=== PATIENT | male | born 1965 | race Caucasian/White ===

== ENCOUNTER 2017-02-18 08:46 | Observation (INO) | payer BC, OTHER ==
[2017-02-18] MEDS ORDERED: Zofran 4 MG/2 ML VIAL IV ONE (09:18)
[2017-02-18] MEDS ORDERED: Hydromorphone 1 mg/ml Ampule IV ONE (09:18)
[2017-02-18] MEDS: Sodium Chloride 0.9% 1000 ML 1,000 ML IV SCH ×3 (09:37→17:09)
[2017-02-18] MEDS ORDERED: Zofran 4 MG/2 ML VIAL ONE (09:37)
[2017-02-18] MEDS ORDERED: Hydromorphone 1 mg/ml Ampule ONE (09:37)
[2017-02-18 09:38] LABS: BASOPHIL % 0.3 % (0.0-0.4); Eosinophil % 0.7 % (0.00-5.0); Granulocytes % 68.8 % (36.0-66.0); Lymphocytes % 19.2 % (24.0-44.0); Mean Cell Volume 93.9 fl (78-100); Mean Corpuscular Hemoglobin 31.2 pg (26-32); Mean Platelet Volume 11.2 fl (6-9.5); Platelet Count 227 K/mm3 (150-450); Red Blood Count 4.78 M/mm3 (4.1-5.6); Red Cell Distribution Width 12.7 % (11.5-14.0); White Blood Count 11.9 K/mm3 (4.0-10.5)
[2017-02-18 09:58] LABS: ALBUMIN 3.9 g/dL (3.4-5.0); ALKALINE PHOSPHATASE 50 U/L (46-116); ANION GAP 13.9 MEQ/L (5-15); BLOOD UREA NITROGEN 19 mg/dL (9-20); CHLORIDE 100 mEq/L (98-107); Carbon Dioxide 30.5 mEq/L (21-32); Glucose 114 MG/DL (70-110); LIPASE 238 U/L (73-393); SGOT/AST 28 U/L (15-37); SGPT/ALT 60 U/L (12-78); SODIUM 140 mEq/L (136-145); Total Protein 7.6 gm/dL (6.4-8.2)
--- NOTE | 2017-02-18 10:05 | ERPHSYRPT ---
- History of Present Illness Time Seen by Provider: 02/18/17 09:15 Historian: patient Exam Limitations: other Patient Subjective Stated Complaint: PT REPORTS LOW ABD PAIN BEGINNING 2 DAYS AGO-STATES THAT PAIN IS LOW NONRADIAITNG-PT STATES HE WENT ON WEB ET HAS EVERY S/S OF AN APPENDITIS-DENIES N/V-UNSURE OF FEVER Triage Nursing Assessment: PT PINK WARM ET [id number] ALL QUESTIONS CORRECTLY-MOVING ALL EXTREMITIES WITH EASE-ABD SOFT ET TENDER IN GROIN/RIGHT QUAD-NO REBOUND TENDERNESS NOTED-BOWEL SOUNDS PRESENT Physician History: Patient with a history of hypertension, type 2 diabetes complains of left lower abdominal pain for 2 days crampy sharp pains, progressively worse. Denies associated fever, chills, nausea, emesis, diarrhea, or urinary symptoms. Timing/Duration: yesterday Activities at Onset: none Quality: cramping, stabbing Abdominal Pain Onset Location: LLQ, suprapubic Pain Radiation: no radiation Severity of Pain-Max: moderate Severity of Pain-Current: moderate Modifying Factors: Improves With: nothing Associated Symptoms: denies symptoms Previous symptoms: no prior history Allergies/Adverse Reactions: No Known Drug Allergies Allergy (Unverified 02/18/17 09:12) Home Medications: Amlodipine Besylate 5 mg [Norvasc 5 mg] 5 mg PO DAILY 02/18/17 [History] Aspirin 81 gm Chew [Baby Aspirin 81 mg Chew] 81 mg PO DAILY 02/18/17 [ History] Atorvastatin Calcium [Lipitor 20MG Tablet] 20 mg PO DAILY 02/18/17 [History] Benazepril HCl 10 mg [Lotensin 10 MG] 10 mg PO BID 02/18/17 [History] Fexofenadine HCl [Shilpi Allergy] 180 mg PO DAILY 02/18/17 [History] Hydrochlorothiazide 25 mg [hydroDIURIL 25 MG] 25 mg PO DAILY 02/18/17 [ History] Metformin HCl 500 mg [Glucophage 500 MG] 500 mg PO BID 02/18/17 [History] Metoprolol Tartrate [Lopressor] 100 mg PO BID 02/18/17 [History] Omeprazole 20 MG [Prilosec 20 mg] 20 mg PO DAILY 02/18/17 [History] Hx Tetanus, Diphtheria Vaccination/Date Given: No Hx Influenza Vaccination/Date Given: No Hx Pneumococcal Vaccination/Date Given: No Immunizations Up to Date: Yes - Review of Systems Constitutional: No Fever, No Chills Eyes: No Symptoms Ears, Nose, & Throat: No Symptoms Respiratory: No Symptoms, No Cough, No Dyspnea Cardiac: No Symptoms, No Chest Pain, No Edema, No Syncope Abdominal/Gastrointestinal: Abdominal Pain, No Nausea, No Vomiting, No Diarrhea Genitourinary Symptoms: No Symptoms, No Dysuria Musculoskeletal: No Symptoms, No Back Pain, No Neck Pain Skin: No Rash Neurological: No Dizziness, No Focal Weakness, No Sensory Changes Psychological: No Symptoms Endocrine: No Symptoms All Other Systems: Reviewed and Negative - Past Medical History Pertinent Past Medical History: Yes Cardiac History: Arrhythmia, Hypertension Endocrine Medical History: Diabetes Type II - Past Surgical History Past Surgical History: Yes Gastrointestinal: Hernia Repair - Social History Smoking Status: Current every day smoker How long have you smoked: YRS Exposure to second hand smoke: Yes Drug Use: none Patient Lives Alone: No - Nursing Vital Signs Nursing Vital Signs: Initial Vital Signs Temperature 97.6 F 02/18/17 09:11 Pulse Rate 75 02/18/17 09:11 Respiratory Rate 18 02/18/17 09:11 Blood Pressure 127/72 02/18/17 09:11 O2 Sat by Pulse Oximetry 96 02/18/17 09:11 Pain Scale Pain Intensity 2 - Physical Exam General Appearance: no apparent distress, alert Eye Exam: PERRL/EOMI, eyes nml inspection Ears, Nose, Throat Exam: normal ENT inspection, pharynx normal, moist mucous membranes Neck Exam: normal inspection, non-tender, supple, full range of motion Respiratory Exam: normal breath sounds, lungs clear, No respiratory distress Cardiovascular Exam: regular rate/rhythm, normal heart sounds Gastrointestinal/Abdomen Exam: soft, normal bowel sounds, tenderness (THERE IS MODERATE LLQ AND SUPRAPUBIC TENDERNESS WITHOUT GUARDING), No mass Back Exam: normal inspection, normal range of motion, No CVA tenderness, No vertebral tenderness Extremity Exam: normal inspection, normal range of motion, pelvis stable Neurologic Exam: alert, oriented x 3, cooperative, normal mood/affect, nml cerebellar function, sensation nml, No motor deficits Skin Exam: normal color, warm, dry SpO2 Interpretation: normal SpO2: 96 Oxygen Delivery: Room Air - CT Exams Abdomen/Pelvis CT Interpretation: Discussed w/radiologist (THERE IS A SHORT SEGMENT OF MODERATE MID/PROXIMAL SIGMOID DIVERTICULITIS, NORMAL APPENDIX ) Ordered Tests: Active Orders 24 hr Category Date Time Status Up Ad Obdulia ROUTINE Activity 02/18/17 11:37 Ordered Accucheck ACHS Care 02/18/17 11:35 Ordered Admission/Status Order ROUTINE Care 02/18/17 11:35 Ordered Call Admit Doctor for Orders ON ADMISSION Care 02/18/17 11:36 Ordered Clean Catch Urine Specimen STAT Care 02/18/17 09:18 Active Code Status Order ROUTINE Care 02/18/17 11:35 Ordered IV Care Q6H Care 02/18/17 11:35 Ordered IV Insertion STAT Care 02/18/17 09:18 Active Vital Signs Q4H Care 02/18/17 11:35 Ordered Clear Liquid Diet 02/18/17 Lunch Ordered ABDOMEN AND PELVIS W CONTRAST [CT] Stat Exams 02/18/17 09:18 Completed AMYLASE Stat Lab 02/18/17 09:34 Completed BLOOD CULTURE Stat Lab 02/18/17 09:34 Received CBC W DIFF Stat Lab 02/18/17 09:34 Completed CMP Stat Lab 02/18/17 09:34 Completed LIPASE Stat Lab 02/18/17 09:34 Completed UA W/RFX UR CULTURE Stat Lab 02/18/17 09:18 Ordered Transfer Order Routine Transfer 02/18/17 Ordered Medication Summary Generic Name Dose Route Start Last Admin Trade Name Freq PRN Reason Stop Dose Admin Acetaminophen 650 mg 02/18/17 11:35 Tylenol 325 Mg PO 03/20/17 11:34 Q4H PRN PRN PAIN AND/OR FEVER Amlodipine Besylate 5 mg 02/19/17 10:00 Norvasc 5 Mg PO 03/21/17 09:59 QAM KAYCE Benazepril HCl 10 mg 02/18/17 22:00 Lotensin 10 Mg PO 03/20/17 21:59 BID KAYCE Hydrochlorothiazide 25 mg 02/19/17 10:00 Hydrodiuril 25 Mg PO 03/21/17 09:59 DAILY KAYCE Hydromorphone HCl 1 mg 02/18/17 11:35 Dilaudid 2 Mg Injection IV 02/23/17 11:34 Q4H PRN PRN PAIN Sodium Chloride 1,000 mls @ 500 mls/hr 02/18/17 09:30 02/18/17 09:37 Sodium Chloride 0.9% 1000 Ml IV 03/20/17 09:29 500 mls/hr .Q2H KAYCE Administration Levofloxacin/Dextrose 500 mg in 100 mls @ 100 mls/hr 02/18/17 11:09 Levofloxacin 500mg/100ml D5w IV 02/18/17 12:08 STAT STA Levofloxacin/Dextrose 500 mg in 100 mls @ 100 mls/hr 02/19/17 10:00 Levofloxacin 500mg/100ml D5w IV 03/21/17 09:59 Q24H10 KAYCE Sodium Chloride 1,000 mls @ 100 mls/hr 02/18/17 11:45 Sodium Chloride 0.9% 1000 Ml IV 03/20/17 11:44 .Q10H KAYCE Insulin Aspart 0 unit 02/18/17 11:35 Novolog Insulin SQ 03/20/17 11:34 UD PRN HYPERGLYCEMIA Metoprolol Tartrate 100 mg 02/18/17 22:00 Lopressor 50 Mg PO 03/20/17 21:59 BID KAYCE Ondansetron HCl 4 mg 02/18/17 11:35 Zofran 4 Mg/2 Ml Vial IV 03/20/17 11:34 Q6H PRN PRN NAUSEA/VOMITING Discontinued Medications Generic Name Dose Route Start Last Admin Trade Name Freq PRN Reason Stop Dose Admin Hydromorphone HCl 1 mg 02/18/17 09:18 02/18/17 09:36 Hydromorphone 1 Mg/Ml Ampule IV 02/18/17 09:19 1 mg STAT ONE Administration Hydromorphone HCl Confirm 02/18/17 09:37 Hydromorphone 1 Mg/Ml Ampule Administered 02/18/17 09:38 Dose 1 mg .ROUTE .STK-MED ONE Metronidazole 500 mg in 100 mls @ 200 mls/hr 02/18/17 11:09 02/18/17 11:21 Flagyl 500 Mg Ivpb IV 02/18/17 11:38 200 mls/hr STAT STA Administration Metronidazole Confirm 02/18/17 11:20 Flagyl 500 Mg Ivpb Administered 02/18/17 11:21 Dose 500 mg in 100 mls @ ud IV .STK-MED ONE Ondansetron HCl 4 mg 02/18/17 09:18 02/18/17 09:36 Zofran 4 Mg/2 Ml Vial IV 02/18/17 09:19 4 mg STAT ONE Administration Ondansetron HCl Confirm 02/18/17 09:37 Zofran 4 Mg/2 Ml Vial Administered 02/18/17 09:38 Dose 4 mg .ROUTE .STK-MED ONE Lab/Rad Data: Laboratory Result Diagrams 02/18/17 09:34 02/18/17 09:34 Laboratory Results 02/18/17 02/18/17 Range/Units 09:34 09:34 WBC 11.9 H (4.0-10.5) K/mm3 RBC 4.78 (4.1-5.6) M/mm3 Hgb 14.9 (12.5-18.0) gm/dl Hct 44.9 (42-50) % MCV 93.9 (78-100) fl MCH 31.2 (26-32) pg MCHC 33.2 (32-36) g/dl RDW 12.7 (11.5-14.0) % Plt Count 227 (150-450) K/mm3 MPV 11.2 H (6-9.5) fl Gran % 68.8 H (36.0-66.0) % Lymphocytes % 19.2 L (24.0-44.0) % Monocytes % 11.0 (0.0-12.0) % Eosinophils % 0.7 (0.00-5.0) % Basophils % 0.3 (0.0-0.4) % Basophils # 0.03 (0-0.4) Sodium 140 (136-145) mEq/L Potassium 4.0 (3.5-5.1) mEq/L Chloride 100 (98-107) mEq/L Carbon Dioxide 30.5 (21-32) mEq/L Anion Gap 13.9 (5-15) MEQ/L BUN 19 (9-20) mg/dL Creatinine 0.99 (0.55-1.30) mg/dl Estimated GFR > 60 ML/MIN Glucose 114 H (70-110) MG/DL Calcium 9.6 (8.5-10.1) mg/dL Total Bilirubin 0.80 (0.2-1.0) mg/dL AST 28 (15-37) U/L ALT 60 (12-78) U/L Alkaline Phosphatase 50 (46-116) U/L Serum Total Protein 7.6 (6.4-8.2) gm/dL Albumin 3.9 (3.4-5.0) g/dL Amylase 60 (25-115) U/L Lipase 238 (73-393) U/L - Progress Progress Note: 02/18/17 11:16 PATIENT ADMINISTERED IV NORMAL SALINE 500ML/HR, ZOFRAN 4MG, DILAUDID 1MG IV, AFTER 2 SETS OF BLOOD CULTURES OBTAINED IV LEVAQUIN 500MG AND FLAGYL 500MG IVPB Discussed with Dr.: Chatman (DISCUSSED WITH DR CHATMAN AT 1130 FOR OBSERVATION) - Departure Time of Disposition: 11:35 Departure Disposition: Observation Clinical Impression: ACUTE SIGMOID DIVERTICULITIS Condition: Stable Critical Care Time: No Referrals: DOCTOR,NO FAMILY [Primary Care Provider] -
--- NOTE | 2017-02-18 10:53 | XRAY ---
Indication: Lower abdominal/pelvic pain. Diarrhea. Multiple contiguous axial images obtained through the abdomen and pelvis using 80 cc Isovue 370 contrast only. Comparison: None Lung bases demonstrate mild bibasilar dependent atelectasis. Heart is not enlarged. Noncontrasted stomach and bowel loops appear nonobstructed. Normal appendix. Mild scattered colonic diverticulosis with short segment of moderate mid/proximal sigmoid diverticulitis. Tiny free fluid but no walled off fluid collection or free air. Remaining liver, gallbladder, pancreas, spleen, adrenal glands, kidneys, ureters, and bladder appear unremarkable. Minimal aortoiliac calcifications. No AAA or pathologic retroperitoneal lymphadenopathy. Osseous structures intact with minimal degenerative changes throughout the spine. Impression: Scattered colonic diverticulosis with sigmoid diverticulitis. No perforation/complications. CT DI 23.42
[2017-02-18] MEDS ORDERED: Levofloxacin 500MG/100ML D5W 500 MG/100 ML BAG IV STA (11:09)
[2017-02-18] MEDS ORDERED: FLAGYL 500 MG IVPB 500 MG/100 ML BAG IV ONE (11:20)
[2017-02-18] MEDS: FLAGYL 500 MG IVPB 500 MG/100 ML BAG IV STA ×2 (11:21→11:30)
[2017-02-18] MEDS ORDERED: TYLENOL 325 MG PO PRN (11:35)
[2017-02-18] MEDS ORDERED: NovoLOG Insulin SQ PRN (11:35)
[2017-02-18] MEDS ORDERED: Zofran 4 MG/2 ML VIAL IV PRN (11:35)
[2017-02-18 12:02] LABS: Bilirubin NEGATIVE (NEGATIVE); Collection Type VOID; Glucose NEGATIVE (NEGATIVE); Leukocyte Esterase NEGATIVE (NEGATIVE)
[2017-02-18 12:09] LABS: COMPLETE URINE MICROSCOPIC? YES
[2017-02-18 12:10] LABS: ADD URINE CULTURE? NO (NO); Bacteria RARE /HPF (NEGATIVE); Epithelial Cells RARE /HPF (FEW)
[2017-02-18] MEDS ORDERED: HOLD METFORMIN PRODUCTS FOR 48 HOURS MC SCH (13:00)
--- NOTE | 2017-02-18 17:03 | PCM.HP ---
History of Present Illness - Chief Complaint Chief Complaint: acute sigmoid diverticulitis History of Present Illness: is a 51 year old male who has had low abdominal pain for the last 2 days. He had a single bout of diarrhea, no blood in the stool. felt subjectively warm, no objective fever. had a colonoscopy last year. - Review of Systems Constitutional: Chills Respiratory: No Cough, No Short Of Breath Cardiac: No Chest Pain, No Edema, No Syncope Abdominal/Gastrointestinal: Abdominal Pain, No Nausea, No Vomiting, No Diarrhea Genitourinary Symptoms: No Dysuria Skin: No Rash All Other Systems: Reviewed and Negative Medications & Allergies Home Medications: Home Medication List Amlodipine Besylate 5 mg [Norvasc 5 mg] 5 mg PO DAILY 02/18/17 [History Confirmed 02/18/17] Aspirin 81 gm Chew [Baby Aspirin 81 mg Chew] 81 mg PO DAILY 02/18/17 [ History Confirmed 02/18/17] Atorvastatin Calcium [Lipitor 20MG Tablet] 20 mg PO DAILY 02/18/17 [History Confirmed 02/18/17] Benazepril HCl 10 mg [Lotensin 10 MG] 10 mg PO BID 02/18/17 [History Confirmed 02/18/17] Fexofenadine HCl [Shilpi Allergy] 180 mg PO DAILY 02/18/17 [History Confirmed 02/18/17] Hydrochlorothiazide 25 mg [hydroDIURIL 25 MG] 25 mg PO DAILY 02/18/17 [ History Confirmed 02/18/17] Metformin HCl 500 mg [Glucophage 500 MG] 500 mg PO BID 02/18/17 [History Confirmed 02/18/17] Metoprolol Tartrate [Lopressor] 100 mg PO BID 02/18/17 [History Confirmed ] Omeprazole 20 MG [Prilosec 20 mg] 20 mg PO DAILY 02/18/17 [History Confirmed ] Allergies/Adverse Reactions: Allergies Allergy/AdvReac Type Severity Reaction Status Date / Time No Known Drug Allergies Allergy Unverified 02/18/17 09:12 - Past Medical History Past Medical History: Yes Neurological History: No Pertinent History ENT History: No Pertinent History Cardiac History: Arrhythmia, Hypertension Respiratory History: No Pertinent History Endocrine Medical History: Diabetes Type II Musculoskelatal History: No Pertinent History GI Medical History: Diverticulitis, GERD History: No Pertinent History Pyscho-Social History: No Pertinent History Male Reproductive Disorders: No Pertinent History - Past Surgical History Past Surgical History: Yes Neuro Surgical History: No Pertinent History Cardiac History: Cardiac Catheterization Respiratory Surgery: No Pertinent History GI Surgical History: Hernia Repair Genitourinary Surgical Hx: No Pertinent History Musculskeletal Surgical Hx: No Pertinent History Male Surgical History: No Pertinent History Other Surgical History: left foot repair surgery. colonoscopy 2016 - Social History Smoking Status: Former smoker How long have you smoked: 20 years Exposure to second hand smoke: Yes Alcohol: Heavy Drug Use: none - Physical Exam Vital Signs: Vital Signs - 24 hr Temp Pulse Resp BP Pulse Ox 02/18/17 16:33 98 F 69 20 128/91 96 02/18/17 12:36 98.2 F 93 H 18 104/60 93 L 02/18/17 12:09 98.2 F 93 H 18 104/60 93 L 02/18/17 11:43 96 02/18/17 11:38 80 18 134/60 98 02/18/17 11:35 98.2 F 93 H 18 104/60 93 L 02/18/17 09:11 97.6 F 75 18 127/72 96 General Appearance: no apparent distress, alert Respiratory Exam: normal breath sounds, lungs clear, No respiratory distress Cardiovascular Exam: regular rate/rhythm, normal heart sounds, normal peripheral pulses Gastrointestinal/Abdomen Exam: tenderness Extremity Exam: normal inspection, normal range of motion, pelvis stable Assessment/Plan (1) Diverticulitis large intestine Current Visit: Yes Status: Acute Assessment & Plan: on levaquin and flagyl, repeat labs in am Code(s): K57.32 - DVTRCLI OF LG INT W/O PERFORATION OR ABSCESS W/O BLEEDING (2) Diabetes mellitus Current Visit: Yes Status: Acute Assessment & Plan: hold metformin, cover with SSI due to IV contrast for CT Code(s): E11.9 - TYPE 2 DIABETES MELLITUS WITHOUT COMPLICATIONS (3) Essential (primary) hypertension Current Visit: Yes Status: Acute Assessment & Plan: continue home meds Code(s): I10 - ESSENTIAL (PRIMARY) HYPERTENSION
[2017-02-18] MEDS: FLAGYL 500 MG IVPB 500 MG/100 ML BAG IV SCH (17:16)
[2017-02-18] MEDS: DILAUDID 2 MG INJECTION IV PRN (18:25)
[2017-02-18] MEDS ORDERED: Lopressor 50 MG ONE (19:58)
[2017-02-18] MEDS ORDERED: Lotensin 10 MG ONE (19:58)
[2017-02-18] MEDS: Lopressor 50 MG PO SCH (21:38)
[2017-02-18] MEDS: Lotensin 10 MG PO SCH (22:56)
[2017-02-19] MEDS: FLAGYL 500 MG IVPB 500 MG/100 ML BAG IV SCH ×5 (00:17→23:56)
[2017-02-19] MEDS: DILAUDID 2 MG INJECTION IV PRN ×4 (04:15→21:15)
[2017-02-19] MEDS: Sodium Chloride 0.9% 1000 ML 1,000 ML IV SCH ×2 (04:18→18:36)
[2017-02-19 05:29] LABS: Mean Cell Volume 95.5 fl (78-100); Mean Corpuscular Hemoglobin 31.1 pg (26-32); Mean Platelet Volume 11.2 fl (6-9.5); Platelet Count 205 K/mm3 (150-450); Red Blood Count 4.63 M/mm3 (4.1-5.6); Red Cell Distribution Width 12.8 % (11.5-14.0); White Blood Count 8.9 K/mm3 (4.0-10.5)
[2017-02-19 05:45] LABS: ALBUMIN 3.5 g/dL (3.4-5.0); ALKALINE PHOSPHATASE 43 U/L (46-116); ANION GAP 12.3 MEQ/L (5-15); BLOOD UREA NITROGEN 16 mg/dL (9-20); CHLORIDE 103 mEq/L (98-107); Carbon Dioxide 30.6 mEq/L (21-32); Glucose 100 MG/DL (70-110); SGOT/AST 22 U/L (15-37); SGPT/ALT 54 U/L (12-78); SODIUM 142 mEq/L (136-145); Total Protein 7.2 gm/dL (6.4-8.2)
[2017-02-19 07:22] LABS: BAND 3 % (0.0-2.0); Eosinophil 2 % (0.00-3.0); Platelet Estimate NORMAL (NORMAL); Total Cells Counted 100
--- NOTE | 2017-02-19 08:37 | PCM.NOTE ---
Date and Time: 02/19/17830 Subjective Assessment: patient feels like his pain is improving today. no new problems or concerns, tolerating po intake Objective Exam General Appearance: no apparent distress, alert Respiratory Exam: normal breath sounds, lungs clear, No respiratory distress Cardiovascular Exam: regular rate/rhythm, normal heart sounds Gastrointestinal/Abdomen Exam: soft, No tenderness, No mass Extremity Exam: normal inspection, normal range of motion OBJECTIVE DATA Vital Signs: Vital Signs - 24 hr Temp Pulse Resp BP Pulse Ox 02/19/17 07:12 97.8 F 66 18 126/70 93 L 02/19/17 04:00 97.5 F 70 18 124/82 94 L 02/19/17 00:25 97.9 F 66 20 113/68 91 L 02/18/17 20:00 98.3 F 71 19 124/75 91 L 02/18/17 16:33 98 F 69 20 128/91 96 02/18/17 12:36 98.2 F 93 H 18 104/60 93 L 02/18/17 12:09 98.2 F 93 H 18 104/60 93 L 02/18/17 11:43 96 02/18/17 11:38 80 18 134/60 98 02/18/17 11:35 98.2 F 93 H 18 104/60 93 L 02/18/17 09:11 97.6 F 75 18 127/72 96 Pain Assessment - Last Documented Pain Intensity 0 Pain Scale Used 0-10 Pain Scale Intake and Output: Intake & Output 02/16/17 02/17/17 02/18/17 02/19/17 11:59 11:59 11:59 11:59 Intake Total 3261 Balance 3261 Weight 111.13 kg Lab Results: Accuchecks Accucheck Value: 110 Accucheck Value: 97 Lab Results-Last 24 Hours 02/19/17 02/19/17 Range/Units 05:18 05:18 WBC 8.9 (4.0-10.5) K/mm3 RBC 4.63 (4.1-5.6) M/mm3 Hgb 14.4 (12.5-18.0) gm/dl Hct 44.2 (42-50) % MCV 95.5 (78-100) fl MCH 31.1 (26-32) pg MCHC 32.6 (32-36) g/dl RDW 12.8 (11.5-14.0) % Plt Count 205 (150-450) K/mm3 MPV 11.2 H (6-9.5) fl Segmented Neutrophils Pending Band Neutrophils Pending Lymphocytes (Manual) Pending Monocytes (Manual) Pending Eosinophils (Manual) Pending Differential Comment Pending Platelet Estimate Pending Sodium 142 (136-145) mEq/L Potassium 4.0 (3.5-5.1) mEq/L Chloride 103 (98-107) mEq/L Carbon Dioxide 30.6 (21-32) mEq/L Anion Gap 12.3 (5-15) MEQ/L BUN 16 (9-20) mg/dL Creatinine 0.99 (0.55-1.30) mg/dl Estimated GFR > 60 ML/MIN Glucose 100 (70-110) MG/DL Calcium 9.1 (8.5-10.1) mg/dL Total Bilirubin 0.70 (0.2-1.0) mg/dL AST 22 (15-37) U/L ALT 54 (12-78) U/L Alkaline Phosphatase 43 L (46-116) U/L Serum Total Protein 7.2 (6.4-8.2) gm/dL Albumin 3.5 (3.4-5.0) g/dL Assessment/Plan (1) Diverticulitis large intestine Current Visit: Yes Status: Acute Assessment & Plan: continue levaquin/flagyl and advance diet at this time Code(s): K57.32 - DVTRCLI OF LG INT W/O PERFORATION OR ABSCESS W/O BLEEDING (2) Diabetes mellitus Current Visit: Yes Status: Acute Code(s): E11.9 - TYPE 2 DIABETES MELLITUS WITHOUT COMPLICATIONS (3) Essential (primary) hypertension Current Visit: Yes Status: Acute Code(s): I10 - ESSENTIAL (PRIMARY) HYPERTENSION
[2017-02-19] MEDS: Lopressor 50 MG PO SCH ×2 (09:19→21:16)
[2017-02-19] MEDS: Lotensin 10 MG PO SCH ×2 (09:21→21:16)
[2017-02-19] MEDS ORDERED: NON-FORMULARY ITEM (Omeprazole 20 Mg [Prilosec 20 Mg] 20 MG) PO SCH (10:00)
[2017-02-19] MEDS ORDERED: BABY ASPIRIN 81 MG CHEW PO SCH (10:00)
[2017-02-19] MEDS ORDERED: hydroDIURIL 25 MG PO SCH ×2 (10:00)
[2017-02-19] MEDS ORDERED: NORVASC 5 MG PO SCH (10:00)
[2017-02-19] MEDS ORDERED: Protonix 40MG Tablet PO SCH (10:00)
[2017-02-19] MEDS ORDERED: Levofloxacin 500MG/100ML D5W 500 MG/100 ML BAG IV SCH (10:00)
[2017-02-19] MEDS ORDERED: ECOTRIN 81 MG PO SCH (10:00)
[2017-02-20] MEDS: FLAGYL 500 MG IVPB 500 MG/100 ML BAG IV SCH (05:13)
[2017-02-20] MEDS: Sodium Chloride 0.9% 1000 ML 1,000 ML IV SCH (05:18)
[2017-02-20 06:00] LABS: BASOPHIL % 0.4 % (0.0-0.4); Eosinophil % 1.9 % (0.00-5.0); Granulocytes % 59.2 % (36.0-66.0); Lymphocytes % 28.4 % (24.0-44.0); Mean Cell Volume 95.8 fl (78-100); Mean Corpuscular Hemoglobin 31.2 pg (26-32); Mean Platelet Volume 11.6 fl (6-9.5); Monocytes % 10.1 % (0.0-12.0); Platelet Count 207 K/mm3 (150-450); Red Blood Count 4.75 M/mm3 (4.1-5.6); Red Cell Distribution Width 12.7 % (11.5-14.0); White Blood Count 7.4 K/mm3 (4.0-10.5)
[2017-02-20 06:17] LABS: ALBUMIN 3.5 g/dL (3.4-5.0); ALKALINE PHOSPHATASE 45 U/L (46-116); ANION GAP 10.6 MEQ/L (5-15); BLOOD UREA NITROGEN 14 mg/dL (9-20); CHLORIDE 105 mEq/L (98-107); Carbon Dioxide 32.6 mEq/L (21-32); Glucose 146 MG/DL (70-110); Potassium 4.2 mEq/L (3.5-5.1); SGOT/AST 24 U/L (15-37); SGPT/ALT 55 U/L (12-78); SODIUM 144 mEq/L (136-145); Total Protein 7.4 gm/dL (6.4-8.2)
--- NOTE | 2017-02-20 07:42 | PCM.DS ---
Discharge Summary Date of Admission: 02/18/17 11:50 Admitting Physician: CLARENCE CHATMAN Primary Care Provider: CLARENCE CHATMAN Allergies Allergies No Known Drug Allergies Allergy (Unverified 02/18/17 09:12) Hospital Summary - Hospital Course Hospital Course: patient was admitted with lower abdominal pain, ct showed sigmoid diverticulitis. has been treated with levaquin and flagyl, he is tolerating po with no issues. pain has nearly resolved and labs are normal at time of discharge. - Vitals & Intake/Output Vital Signs: Vital Signs Temperature 98.2 F 02/20/17 07:32 Pulse Rate 62 02/20/17 07:32 Respiratory Rate 16 02/20/17 07:32 Blood Pressure 134/91 02/20/17 07:32 O2 Sat by Pulse Oximetry 92 L 02/20/17 07:32 Intake & Output: Intake & Output 02/17/17 02/18/17 02/19/17 02/20/17 11:59 11:59 11:59 11:59 Intake Total 3801 1200 Balance 3801 1200 Weight 111.13 kg - Lab Result Diagrams: 02/20/17 05:45 02/20/17 05:45 Lab Results-Last 24 Hrs: Accuchecks Accucheck Value: 168 Accucheck Value: 80 Accucheck Value: 96 Lab Results-Last 24 Hours 02/19/17 02/20/17 02/20/17 Range/Units 05:18 05:45 05:45 WBC 7.4 (4.0-10.5) K/mm3 RBC 4.75 (4.1-5.6) M/mm3 Hgb 14.8 (12.5-18.0) gm/dl Hct 45.5 (42-50) % MCV 95.8 (78-100) fl MCH 31.2 (26-32) pg MCHC 32.5 (32-36) g/dl RDW 12.7 (11.5-14.0) % Plt Count 207 (150-450) K/mm3 MPV 11.6 H (6-9.5) fl Gran % 59.2 (36.0-66.0) % Lymphocytes % 28.4 (24.0-44.0) % Monocytes % 10.1 (0.0-12.0) % Eosinophils % 1.9 (0.00-5.0) % Basophils % 0.4 (0.0-0.4) % Segmented Neutrophils 66 (36.-66.) % Band Neutrophils 3 H (0.0-2.0) % Lymphocytes (Manual) 23 L (24-44) % Monocytes (Manual) 6 (0.0-12.0) % Eosinophils (Manual) 2 (0.00-3.0) % Basophils # 0.03 (0-0.4) Differential Comment NORMAL Platelet Estimate NORMAL (NORMAL) Sodium 144 (136-145) mEq/L Potassium 4.2 (3.5-5.1) mEq/L Chloride 105 (98-107) mEq/L Carbon Dioxide 32.6 H (21-32) mEq/L Anion Gap 10.6 (5-15) MEQ/L BUN 14 (9-20) mg/dL Creatinine 0.87 (0.55-1.30) mg/dl Estimated GFR > 60 ML/MIN Glucose 146 H (70-110) MG/DL Calcium 9.1 (8.5-10.1) mg/dL Total Bilirubin 0.30 (0.2-1.0) mg/dL AST 24 (15-37) U/L ALT 55 (12-78) U/L Alkaline Phosphatase 45 L (46-116) U/L Serum Total Protein 7.4 (6.4-8.2) gm/dL Albumin 3.5 (3.4-5.0) g/dL Micro Results-Entire Visit: Accuchecks Accucheck Value: 168 Accucheck Value: 80 Accucheck Value: 96 Discharge Exam General Appearance: no apparent distress, alert Skin Exam: normal color, warm, dry Respiratory Exam: normal breath sounds, lungs clear, No respiratory distress Cardiovascular Exam: regular rate/rhythm, normal heart sounds Gastrointestinal/Abdomen Exam: tenderness (mild lower), No distention, No mass, No guarding, No rebound Extremity Exam: normal inspection, normal range of motion Final Diagnosis/Problem List - Final Discharge Diagnosis/Problem (1) Diverticulitis large intestine Current Visit: Yes Status: Acute Assessment & Plan: home on po levaquin and flagyl, will f/u with [facility] in [place] in 1 week (2) Diabetes mellitus Current Visit: Yes Status: Acute (3) Essential (primary) hypertension Current Visit: Yes Status: Acute - Discharge Disposition: Home, Self-Care Condition: Stable Prescriptions: New Metronidazole [Flagyl] 500 mg PO TID #21 tablet Levofloxacin [Levaquin] 500 mg PO DAILY #7 tablet Hydrocodone Bit/Acetaminophen [Courtenay 5-325 Tablet] 1 each PO Q4-6HPRN PRN # 20 tablet PRN Reason: Pain Continue Benazepril HCl 10 mg [Lotensin 10 MG] 10 mg PO BID Metoprolol Tartrate [Lopressor] 100 mg PO BID Atorvastatin Calcium [Lipitor 20MG Tablet] 20 mg PO DAILY Amlodipine Besylate 5 mg [Norvasc 5 mg] 5 mg PO DAILY Omeprazole 20 MG [Prilosec 20 mg] 20 mg PO DAILY Fexofenadine HCl [Shilpi Allergy] 180 mg PO DAILY Metformin HCl 500 mg [Glucophage 500 MG] 500 mg PO BID Hydrochlorothiazide 25 mg [hydroDIURIL 25 MG] 25 mg PO DAILY Aspirin 81 gm Chew [Baby Aspirin 81 mg Chew] 81 mg PO DAILY #30 tab.chew Follow up with: DOCTOR,NO FAMILY [NON-STAFF PHY W/O PRIVILEGES] -
[2017-02-20 10:20] VITALS: BP 152/90; PULSE 75; O2SAT 94
== END 2017-02-20 10:30 | disposition home or self-care (01) ==
LOC: ED 08:46 → MED SURG 11:50
PROVIDERS: ADMIT Family Medicine; ATTEND Family Medicine
DX: K57.32 Diverticulitis of large intestine without perforation or abscess without bleeding (principal); E11.9 Type 2 diabetes mellitus without complications; I10 Essential (primary) hypertension; K21.9 Gastro-esophageal reflux disease without esophagitis; Z79.899 Other long term (current) drug therapy
CPT/HCPCS: 36000; 36415; 74177; 80053; 81000; 82150; 82962; 83690; 85025; 87040; 96360; 96361; 96365; 96366; 96374; 96375; 99285; G0378; J1170; J1956; J2405; A9270-GY